=== PATIENT | female | born 1950 | race Caucasian/White ===

== ENCOUNTER 2023-10-20 10:49 | Outpatient (REF) | payer OTHER, SELFPAY ==
[2023-10-20 12:27] LABS: C Reactive Protein < 0.10 mg/dL (< or = 0.50)
[2023-10-20 12:44] LABS: Erythrocyte Sedimentation Rate 7 MM/HR (0-20)
== END 2023-10-20 10:50 | disposition home or self-care (01) ==
LOC: HO.LAB 10:49
PROVIDERS: PCP Family Medicine; Visit Provider Registered Nurse
DX: G44.209 Tension-type headache, unspecified, not intractable (principal)
CPT/HCPCS: 36415; 85652; 86140